=== PATIENT | male | born 1960 | race Caucasian/White ===

== ENCOUNTER 2022-04-30 07:44 | Observation (INO) | payer OTHER ==
[2022-04-30] MEDS ORDERED: Ketorolac 60 MG/2 ML SDV IM ONE (08:09)
[2022-04-30] MEDS ORDERED: Ketorolac 60 MG/2 ML SDV ONE (08:19)
[2022-04-30] MEDS ORDERED: Morphine 2 MG/ML SYRINGE IM ONE (08:39)
[2022-04-30] MEDS ORDERED: Morphine 10 MG/ML SDV ONE (08:49)
[2022-04-30] MEDS ORDERED: Morphine 4 MG/ML VIAL IVPUSH ONE (08:58)
[2022-04-30 09:27] LABS: TROPONIN I HIGH SENSITIVITY 9.4 pg/ml (<=60.4)
[2022-04-30] MEDS ORDERED: Sodium Chloride 0.9% 1,000 ML IV SCH (09:30)
[2022-04-30] MEDS ORDERED: Morphine 4 MG/ML VIAL IVPUSH PRN (11:00)
[2022-04-30] MEDS ORDERED: Acetaminophen 325 MG Tab PO PRN (11:00)
[2022-04-30] MEDS: Ketorolac 10 MG Tab PO PRN ×2 (12:49→19:14)
[2022-04-30] MEDS: Gabapentin 100 MG Cap PO SCH ×3 (12:49→19:14)
[2022-04-30] MEDS: Nicotine 21 MG/24 Hr Patch TRDERM SCH (13:00)
[2022-04-30] MEDS ORDERED: ALPRAZolam 0.25 MG Tab PO PRN (13:14)
[2022-04-30] MEDS ORDERED: ALPRAZolam 0.25 MG Tab PO SCH (14:00)
[2022-05-01] MEDS: Ketorolac 10 MG Tab PO PRN ×3 (07:21→20:25)
[2022-05-01] MEDS: Gabapentin 100 MG Cap PO SCH ×2 (07:23→14:09)
[2022-05-01] MEDS: Nicotine 21 MG/24 Hr Patch TRDERM SCH (07:25)
[2022-05-01] MEDS ORDERED: Lidocaine 5% 700 MG Patch TRDERM ONE (09:34)
[2022-05-01] MEDS ORDERED: Acetaminophen/HYDROcodone 325-5 MG Tab PO PRN (09:45)
[2022-05-01] MEDS: Acetaminophen/HYDROcodone 325-10 MG Tab PO PRN ×2 (10:10→15:26)
[2022-05-01] MEDS ORDERED: Lidocaine 5% 700 MG Patch ONE (10:10)
[2022-05-01] MEDS ORDERED: Acetaminophen/HYDROcodone 325-10 MG Tab ONE (10:18)
[2022-05-01] MEDS ORDERED: fentaNYL 12 MCG/HR Transdermal Patch TRDERM SCH (17:30)
[2022-05-01] MEDS: Gabapentin 300 MG Cap PO SCH (20:25)
[2022-05-02] MEDS: Morphine 10 MG/ML SDV IVPUSH PRN ×2 (01:46→11:17)
[2022-05-02] MEDS: Nicotine 21 MG/24 Hr Patch TRDERM SCH (07:57)
[2022-05-02] MEDS: Gabapentin 300 MG Cap PO SCH (07:57)
[2022-05-02] MEDS: Ketorolac 10 MG Tab PO PRN (08:00)
[2022-05-02 08:21] VITALS: BP 158/99; PULSE 81
== END 2022-05-02 11:56 | disposition home or self-care (01) ==
LOC: LB.ED 07:44 → LB.MS 10:47
PROVIDERS: ADMIT Surgery; ATTEND Surgery
DX: S42.111A Displaced fracture of body of scapula, right shoulder, initial encounter for closed fracture (principal); S22.41XA Multiple fractures of ribs, right side, initial encounter for closed fracture; F41.9 Anxiety disorder, unspecified; Z79.899 Other long term (current) drug therapy; Z20.822 Contact with and (suspected) exposure to COVID-19; W01.0XXA Fall on same level from slipping, tripping and stumbling without subsequent striking against object, initial encounter
CPT/HCPCS: 36415; 71045; 71250; 72131; 80048; 80053; 84484; 85025; 96361; 96372; 96374; 96376; 99285-25; A9270-GY; G0378; J1885; J2270; J7030; U0002